=== PATIENT | female | born 1960 | race Caucasian/White ===

== ENCOUNTER → 2018-09-04 | Outpatient (CLI) | payer BC ==
[~2018-09-04] MED LIST: BUPR150ER PO; CHOL10002 PO; Cranberry300 MG PO; ESTR2 TOP; L-METHYLFOLATE15 MG PO; LORPSEER24; Naltrexone HCl50 MG PO; PROG100 PO; Percocet 5-3251 EACH PO; SERZONE; Super B Comple150 MG PO; TRAZ100 PO; VIIBRYD40 MG PO
[2018-09-08 16:07] LABS: HPV 16 Negative (Negative); HPV 18 Negative (Negative); HPV OTHER HR TYPES Negative (Negative)
== END | disposition home or self-care (01) ==
LOC: LAB SHORT 15:22 → LAB 15:22
PROVIDERS: Nurse Practitioner Women's Health
DX: Z12.72 Encounter for screening for malignant neoplasm of vagina (principal); Z91.89 Other specified personal risk factors, not elsewhere classified
CPT/HCPCS: 87624; G0123

== ENCOUNTER → 2021-08-29 | Outpatient (CLI) | payer BC | END | disposition home or self-care (01) | LOC: LAB SHORT 08:05 | DX: L57.0 Actinic keratosis (principal); D04.5 Carcinoma in situ of skin of trunk | CPT/HCPCS: 88305 ==

== ENCOUNTER 2023-07-17 11:35 | Day surgery (SDC) | payer BC ==
[~2023-07-17] VITALS: Ht 165.1 cm; Wt 73.1 kg
[2023-07-17] MEDS ORDERED: AZELASTINE137 MCG/01 (11:50)
[2023-07-17] MEDS ORDERED: Diclofenac Pota50 MG (11:51)
[2023-07-17 14:13] VITALS: BP 111/72
== END 2023-07-17 14:11 | disposition home or self-care (01) ==
LOC: ORSCSDS 11:35
PROVIDERS: Surgery
PROC: 0DBN8ZX Excision of Sigmoid Colon, Via Natural or Artificial Opening Endoscopic, Diagnostic (ICD-10-PCS; principal; 2023-07-17 13:00)
PROC: 0DBK8ZX Excision of Ascending Colon, Via Natural or Artificial Opening Endoscopic, Diagnostic (ICD-10-PCS; principal; 2023-07-17 13:00)
DX: Z12.11 Encounter for screening for malignant neoplasm of colon (principal); D12.2 Benign neoplasm of ascending colon; D12.5 Benign neoplasm of sigmoid colon; K63.89 Other specified diseases of intestine; E11.9 Type 2 diabetes mellitus without complications; F32.A Depression, unspecified; Z79.899 Other long term (current) drug therapy
CPT/HCPCS: 82947; 88305; J0461; J2001; J2405; J2704; J7120; Q9968